=== PATIENT | male | born 1980 | race African-American/Black ===

== ENCOUNTER 2018-04-02 23:06 | Emergency (ER) | payer SELFPAY ==
--- NOTE | 2018-04-02 23:31 | RADIOLOGY REPORT (SQ) ---
EXAM DESCRIPTION: XR FOOT 1-2 VIEWS COMPLETED DATE/TME: 04/02/2018 00:00 CLINICAL HISTORY: 37 years, Male, Foot injury/laceration- possible foreign body COMPARISON: None. FINDINGS: 2 views of the left foot. No acute fracture or dislocation. Normal osseous mineralization. No radiopaque foreign body. IMPRESSION: No acute fracture or dislocation. 2011 [employer]- All Rights Reserved
[2018-04-03] MEDS ORDERED: OXYCODONE-ACETAMINOPHEN 5-325 MG TABLET PO ONE (01:01)
--- NOTE | 2018-04-03 01:07 | ER Document Report ---
ED Extremity Problem, Lower - General Mode of Arrival: Ambulatory Information source: Patient TRAVEL OUTSIDE OF THE [place] IN LAST 30 DAYS: No <CINDY POMPA - Last Filed: 04/03/18 01:00> <FAMILIA SUTTON - Last Filed: 04/03/18 06:22> - General Chief Complaint: Foot Injury Stated Complaint: LEFT FOOT INJURY Time Seen by Provider: 04/03/18 00:51 Notes: Patient is a 37 year old male presenting to the emergency department complaining of a laceration to the left foot and left foot pain. Patient states he fell over a wooden cradle which broke and proceeded to step on it around 2200 last night. Patient does not remember his last tetanus shot. (CINDY POMPA) - Related Data Allergies/Adverse Reactions: lactose [Lactose] Allergy (Verified 01/28/14 09:26) Past Medical History - General Information source: Patient - Social History Smoking Status: Current Every Day Smoker Chew tobacco use (# tins/day): No Frequency of alcohol use: Occasional Drug Abuse: Marijuana Family History: Reviewed & Not Pertinent Patient has suicidal ideation: No Patient has homicidal ideation: No - Immunizations Hx Diphtheria, Pertussis, Tetanus Vaccination: Yes <CINDY POMPA - Last Filed: 04/03/18 01:00> Review of Systems - Review of Systems Constitutional: No symptoms reported EENT: No symptoms reported Cardiovascular: No symptoms reported Respiratory: No symptoms reported Gastrointestinal: No symptoms reported Genitourinary: No symptoms reported Male Genitourinary: No symptoms reported Musculoskeletal: See HPI Skin: No symptoms reported Hematologic/Lymphatic: No symptoms reported Neurological/Psychological: No symptoms reported -: Yes All other systems reviewed and negative <CINDY POMPA - Last Filed: 04/03/18 01:00> Physical Exam <CINDY POMPA - Last Filed: 04/03/18 01:00> <FAMILIA SUTTON - Last Filed: 04/03/18 06:22> - Vital signs Vitals: Temp Pulse Resp BP Pulse Ox 98.9 F 72 16 135/82 H 98 04/02/18 23:39 04/02/18 23:39 04/02/18 23:39 04/02/18 23:39 04/02/18 23:39 - Notes Notes: GENERAL: Alert, interacts well. No acute distress. HEAD: Normocephalic, atraumatic. EYES: Pupils equal, round, and reactive to light. Extraocular movements intact. ENT: Oral mucosa moist, tongue midline. NECK: Full range of motion. Supple. Trachea midline. LUNGS: No respiratory distress. HEART: Regular rate and rhythm. No murmurs, gallops, or rubs. ABDOMEN: Soft, non-tender. Non-distended. Bowel sounds present in all 4 quadrants. EXTREMITIES: Moves all 4 extremities spontaneously. No edema, radial and dorsalis pedis pulses 2/4 bilaterally. No cyanosis. NEUROLOGICAL: Alert and oriented x3. Normal speech. PSYCH: Normal affect, normal mood. SKIN: Warm, dry, normal turgor. 1x1 cm evulsion type laceration on the plantar aspect of the left foot close to heel, tissue folds posteriorly and inverts into wound. (CINDY POMPA) Course <CINDY POMPA - Last Filed: 04/03/18 01:00> - Diagnostic Test Radiology reviewed: Image reviewed, Reports reviewed - X-rays are unremarkable, no foreign body seen no fracture seen. <FAMILIA SUTTON - Last Filed: 04/03/18 06:22> - Re-evaluation Re-evalutation: 04/03/18 01:58 Patient is unable to tolerate any sort of exam of the involved area. We will get a suture kit set up and anesthetized the involved port part of his foot. 04/03/18 06:20 PROCEDURE: The skin on the plantar surface of the left foot was prepped with Shur-Clens. The wound was anesthetized with 1% lidocaine infiltrated under the skin and into the subcutaneous tissues around the wound. After adequate anesthesia, the skin flap was elevated, the wound was copiously irrigated with 40 mL's of normal saline, and the entire extent of the wound under the intact skin was explored with a mosquito clamp to confirm there were no foreign bodies. The full-thickness skin flap was then placed back into anatomical position and bandaged. (FAMILIA SUTTON) - Vital Signs Vital signs: Temp Pulse Resp BP Pulse Ox 98.6 F 88 16 138/77 H 100 04/03/18 04:20 04/03/18 04:20 04/03/18 04:20 04/03/18 04:20 04/03/18 04:20 Discharge <CINDY POMPA - Last Filed: 04/03/18 01:00> <FAMILIA SUTTON - Last Filed: 04/03/18 06:22> - Discharge Clinical Impression: Avulsion of skin of foot Qualifiers: Encounter type: initial encounter Laterality: left Qualified Code(s): S91.302A - Unspecified open wound, left foot, initial encounter Condition: Stable Disposition: HOME, SELF-CARE Additional Instructions: A small piece of full-thickness skin was avulsed from the bottom of your foot. The area under the skin was explored and cleaned. The skin was placed back intact and should be left that way. Keep the dressing clean and dry. Elevate your foot as much as possible. Try to avoid walking on that area. Some of that skin flap will probably survive and some of it may eventually slough off. Follow-up with your doctor or [facility] in 3-5 days to recheck your wound. Forms: Return to Work Referrals: ALICE BARR NP [Primary Care Provider] - Follow up in 3-5 days [facility] [Provider Group] - Follow up in 3-5 days Scribe Attestation: 04/03/18 02:00 I personally performed the services described in the documentation, reviewed and edited the documentation which was dictated to the scribe in my presence, and it accurately records my words and actions. (FAMILIA SUTTON) Scribe Documentation - Scribe Written by Tao:: Tao Gonzalez, 04/03/2018 01:07 acting as scribe for :: Jimmy <CINDY POMPA - Last Filed: 04/03/18 01:00>
[2018-04-03] MEDS ORDERED: LIDOCAINE 1% INJ-PF (10 MG/ML) 30 ML SDV INJ ONE (01:57)
[2018-04-03 04:23] VITALS: BP 138/77
== END 2018-04-03 03:10 | disposition home or self-care (01) ==
LOC: ER 23:06
DX: S91.312A Laceration without foreign body, left foot, initial encounter (principal); W01.198A Fall on same level from slipping, tripping and stumbling with subsequent striking against other object, initial encounter; F17.200 Nicotine dependence, unspecified, uncomplicated; F12.10 Cannabis abuse, uncomplicated
CPT/HCPCS: 99283; 73620; J3490

== ENCOUNTER 2019-01-16 13:39 | Emergency (ER) | payer SELFPAY ==
[2019-01-16] MEDS ORDERED: ONDANSETRON HCL INJ/PF 4 MG/2 ML SDV IV ONE (14:57)
[2019-01-16] MEDS ORDERED: KETOROLAC TROMETHAMINE INJ/PF 30 MG/1 ML SDV IV ONE ×2 (14:57→21:57)
--- NOTE | 2019-01-16 14:58 | ER Document Report ---
ED Medical Screen (RME) - General Chief Complaint: Flank Pain Stated Complaint: SIDE PAIN Time Seen by Provider: 01/16/19 14:57 Primary Care Provider: ALICE BARR NP [Primary Care Provider] - Follow up as needed Mode of Arrival: Ambulatory Information source: Patient Notes: Patient presents complaining of left lateral side pain that started today with hematuria nausea and vomiting. Patient denies any concerns about STI. I have greeted and performed a rapid initial assessment of this patient. A comprehensive ED assessment and evaluation of the patient, analysis of test results and completion of the medical decision making process will be conducted by additional ED providers. TRAVEL OUTSIDE OF THE [place]. IN LAST 30 DAYS: No - Related Data Allergies/Adverse Reactions: lactose [Lactose] Allergy (Verified 01/16/19 13:54) Past Medical History Renal/ Medical History: Denies: Hx Peritoneal Dialysis - Immunizations Hx Diphtheria, Pertussis, Tetanus Vaccination: Yes Physical Exam - Vital signs Vitals: Temp Pulse Resp BP Pulse Ox 98.2 F 87 18 135/95 H 98 01/16/19 14:12 01/16/19 14:12 01/16/19 14:12 01/16/19 14:12 01/16/19 14:12 - General General appearance: Appears well, Alert Notes: Left lateral side tenderness Course - Vital Signs Vital signs: Temp Pulse Resp BP Pulse Ox 98.2 F 87 18 135/95 H 98 01/16/19 14:12 01/16/19 14:12 01/16/19 14:12 01/16/19 14:12 01/16/19 14:12 Doctor's Discharge - Discharge Referrals: ALICE BARR NP [Primary Care Provider] - Follow up as needed
--- NOTE | 2019-01-16 15:55 | RADIOLOGY REPORT (SQ) ---
EXAM DESCRIPTION: CT ABD/PELVIS NO ORAL OR IV COMPLETED DATE/TIME: 01/16/2019 3:35 pm REASON FOR STUDY: L lat side pain, +hematuria COMPARISON: 01/28/2014 TECHNIQUE: CT scan of the abdomen and pelvis performed without intravenous or oral contrast. Images reviewed with lung, soft tissue, and bone windows. Reconstructed coronal and sagittal MPR images revi ewed. All images stored on PACS. All CT scanners at this facility use dose modulation, iterative reconstruction, and/or weight based d osing when appropriate to reduce radiation dose to as low as reasonably achievable (ALARA). [facility]: Dose Right [facility]: CareDose [facility]: Dose Right [facility]: Teradose 4D [facility]: Smart Fangcang RADIATION DOSE: CT Rad equipment meets quality standard of care and radiation dose reduction techniq ues were employed. CTDIvol: 14.1 mGy. DLP: 823 mGy-cm.mGy. LIMITATIONS: None. FINDINGS: LOWER CHEST: No significant findings. No nodules or infiltrates. NON-CONTRASTED LIVER, SPLEEN, ADRENALS: Evaluation limited by lack of IV contrast. Diffuse fatty inf iltration of the liver. No identified significant masses. PANCREAS: No masses. No peripancreatic inflammatory changes. GALLBLADDER: No calcified stones. No inflammatory changes to suggest cholecystitis. RIGHT KIDNEY AND URETER: No cysts identified. No solid masses. No calcified stones. No hydronephrosis or hydroureter. LEFT KIDNEY AND URETER: No cysts identified. No solid masses. No calcified stones. No hydronephrosis or hydroureter. AORTA AND RETROPERITONEUM: No aneurysm. No retroperitoneal masses or adenopathy. BOWEL AND PERITONEAL CAVITY: No obvious masses or inflammatory changes. No free fluid. APPENDIX: Normal. PELVIS, BLADDER, AND ABDOMINAL WALL:No abnormal masses. No free fluid. Punctate calcification in the superior right bladder wall. BONES: No acute findings. OTHER: No other significant finding. IMPRESSION: No acute inflammatory changes. TECHNICAL DOCUMENTATION: JOB ID: [id number] [place]-72 Quality ID # [id number]: Final reports with documentation of one or more dose reduction techniques (e.g., Au tomated exposure control, adjustment of the mA and/or kV according to patient size, use of iterative reconstruction technique) 2010 [employer]- All Rights Reserved Reading location - IP/workstation name: [email or web address]
[2019-01-16 16:32] LABS: ABSOLUTE BASOPHILS # (AUTO) 0.1 10^3/uL (0.0-0.2); ABSOLUTE EOSINOPHILS # (AUTO) 0.2 10^3/uL (0.0-0.6); ABSOLUTE LYMPHOCYTES (AUTO) 1.8 10^3/uL (0.5-4.7); ABSOLUTE MONOCYTES (AUTO) 1.2 10^3/uL (0.1-1.4); ABSOLUTE NEUT (AUTO) 8.3 10^3/uL (1.7-8.2); BASOPHILS % (AUTO) 0.6 % (0-2); EOSINOPHILS % (AUTO) 1.4 % (0-6); LYMPHOCYTES % (AUTO) 15.8 % (13-45); MEAN CORPUSCULAR HEMOGLOBIN 36.3 pg (27.0-33.4); MEAN CORPUSCULAR HGB CONC 34.1 g/dL (32.0-36.0); MEAN CORPUSCULAR VOLUME 106 fl (80-97); MONOCYTES % (AUTO) 10.6 % (3-13); PLATELET COUNT 255 10^3/uL (150-450); RED BLOOD COUNT 5.56 10^6/uL (4.35-5.55); RED CELL DISTRIBUTION WIDTH 15.1 % (11.5-14.0); SEGMENTED NEUTROPHILS % (AUTO) 71.6 % (42-78); TOTAL CELLS COUNTED % (AUTO) 100 %; WHITE BLOOD COUNT 11.6 10^3/uL (4.0-10.5)
[2019-01-16 16:42] LABS: ALANINE AMINOTRANSFERASE 63 U/L (21-72); ALBUMIN 4.5 g/dL (3.5-5.0); ALKALINE PHOSPHATASE 163 U/L (38-126); ANION GAP 14 (5-19); ASPARTATE AMINO TRANSFERASE 89 U/L (17-59); BILIRUBIN,DIRECT 0.4 mg/dL (0.0-0.4); BILIRUBIN,TOTAL 1.4 mg/dL (0.2-1.3); BLOOD UREA NITROGEN 6 mg/dL (7-20); CALCIUM 10.1 mg/dL (8.4-10.2); CARBON DIOXIDE 31 mmol/L (22-30); CHLORIDE 97 mmol/L (98-107); GLUCOSE 77 mg/dL (75-110); POTASSIUM 3.7 mmol/L (3.6-5.0); SODIUM 141.7 mmol/L (137-145); TOTAL PROTEIN 8.4 g/dL (6.3-8.2)
[2019-01-16 16:44] LABS: HEMATOCRIT 59.1 % (37.9-51.0)
[2019-01-16 16:48] LABS: HEMOGLOBIN 20.2 g/dL (13.5-17.0)
[2019-01-16 16:56] LABS: APPEARANCE,URINE TURBID; BILIRUBIN,URINE NEGATIVE (NEGATIVE); CALCIUM OXALATE CRYSTALS,URINE FEW /HPF; COLOR,URINE YELLOW; GLUCOSE, URINE NEGATIVE (NEGATIVE); KETONES,URINE NEGATIVE (NEGATIVE); LEUKOCYTE ESTERASE,URINE LARGE (NEGATIVE); NITRITE,URINE NEGATIVE (NEGATIVE); PROTEIN,URINE 100 mg/dL (NEGATIVE); URINE SPECIFIC GRAVITY 1.015
[2019-01-16 18:17] LABS: CHLAM PCR NOT DETECTED (NOT DETECT)
[2019-01-16 18:22] LABS: GON PCR NOT DETECTED (NOT DETECT)
[2019-01-16] MEDS ORDERED: CEFTRIAXONE INJ 500 MG VIAL IV ONE (19:22)
[2019-01-16] MEDS ORDERED: AZITHROMYCIN 250 MG TABLET PO ONE (19:22)
[2019-01-16] MEDS ORDERED: DOXYCYCLINE HYCLATE 100 MG TABLET PO ONE (19:23)
[2019-01-16] MEDS ORDERED: NORMAL SALINE 1000 ML 1,000 ML IV ONE (20:17)
[2019-01-16] MEDS ORDERED: PHENAZOPYRIDINE HCL 200 MG TABLET PO ONE (20:29)
--- NOTE | 2019-01-16 21:11 | ER Document Report ---
ED General - General Chief Complaint: Flank Pain Stated Complaint: SIDE PAIN Time Seen by Provider: 01/16/19 14:57 Primary Care Provider: ALICE BARR NP [ALLIED HEALTH PROFESSIONAL] - Follow up as needed Mode of Arrival: Ambulatory TRAVEL OUTSIDE OF THE [place] IN LAST 30 DAYS: No - HPI Notes: Patient is a 38-year-old gentleman comes to the emergency department for evaluation of left lower quadrant pain, discharge from his penis, and burning with urination. He states that the abdominal pain started yesterday. It seemed to start after having sex with his . He states that he has had some nausea but no emesis. He said urinary frequency and urgency as well, noted some gross hematuria earlier today. Upon arrival to the emergency department, he did note some discharge from his penis. He states he is in a sexually monogamous relationship with his . Denies any other sores. He felt chilled yesterday but no tami fevers. - Related Data Allergies/Adverse Reactions: lactose [Lactose] Allergy (Verified 01/16/19 13:54) Past Medical History - General Information source: Patient - Social History Smoking Status: Current Every Day Smoker Chew tobacco use (# tins/day): No Frequency of alcohol use: Heavy Drug Abuse: None Family History: Reviewed & Not Pertinent Patient has suicidal ideation: No Patient has homicidal ideation: No - Past Medical History Cardiac Medical History: Reports: Hx Hypertension Renal/ Medical History: Denies: Hx Peritoneal Dialysis - Immunizations Hx Diphtheria, Pertussis, Tetanus Vaccination: Yes Review of Systems - Review of Systems Constitutional: See HPI EENT: No symptoms reported Cardiovascular: No symptoms reported Respiratory: No symptoms reported Gastrointestinal: See HPI Genitourinary: See HPI Male Genitourinary: See HPI Musculoskeletal: No symptoms reported Skin: No symptoms reported Neurological/Psychological: No symptoms reported Physical Exam - Vital signs Vitals: Temp Pulse Resp BP Pulse Ox 98.2 F 87 18 135/95 H 98 01/16/19 14:12 01/16/19 14:12 01/16/19 14:12 01/16/19 14:12 01/16/19 14:12 - Notes Notes: Vital signs reviewed, please refer to chart. Head is normocephalic, atraumatic. Pupils equal round, reactive to light. Neck is supple without meningismus. Heart is regular rate and rhythm. Lungs are clear to auscultation bilaterally. Abdomen is soft, nontender, normoactive bowel sounds throughout. Semination of the genitalia yields no obvious lesions. He does have a small amount of green purulent drainage noted at the urethral meatus. No penile tenderness. Bilateral testicles are descended without significant tenderness. Intact crem asteric reflex. Extremities without cyanosis, clubbing. Posterior calves are nontender. Peripheral pulses are equal. Skin is warm and dry. Patient is awake, alert, neurological exam is nonfocal. Course - Re-evaluation Re-evalutation: 01/16/19 21:05 Patient presents emergency department for evaluation. His findings are consist ent with urethritis. I did discuss findings at length with the patient and his . I do feel inclined to treat him for gonorrhea and chlamydia, and I explained that to him. Her urine did not reveal gonorrhea or chlamydia positivity. He was medicated here with Rocephin, Zithromax. I will then treat him with doxycycline for urethritis. Urine sent for culture. I expanded the patient that he needs urological follow-up. Certainly it is not normal for a patient of his aged to have a urinary tract infection. He voiced understanding to this. On further questioning he states he did have some dysuria and dark urine about a week ago. He believes it was just from dehydration. I told him that that certainly could have been the start of an infection and he needs to follow-up. He voiced understanding to this. I also notify the patient of his high hemoglobin. This is likely secondary to his smoking. He does not have any clubbing on exam. I explicitly told the patient that he needs to quit smoking. He understands this as well. He is to return to the emergency department with worsening or new concerning symptoms of any sort. 01/16/19 21:58 Notified by nursing that the patient is having diarrhea. I went in to reevaluate the patient. His abdomen remains soft. It is unclear at this time as to whether or not this patient's diarrhea is secondary to the antibiotic doses that he had here or from a viral illness that caused his nausea in the first place. I do not want to treat his diarrhea at this time. I did go ahead and give a second dose of Toradol, lower dose, as well as some oral Bentyl. He is given oral instructions on diet for diarrhea. He is to follow-up with pr ary care. - Vital Signs Vital signs: Temp Pulse Resp BP Pulse Ox 98.2 F 87 18 135/95 H 98 01/16/19 14:12 01/16/19 14:12 01/16/19 14:12 01/16/19 14:12 01/16/19 14:12 - Laboratory Result Diagrams: 01/16/19 15:55 01/16/19 15:55 Laboratory results interpreted by me: 01/16/19 01/16/19 01/16/19 15:50 15:55 15:55 WBC 11.6 H RBC 5.56 H Hgb 20.2 H* Hct 59.1 H MCV 106 H MCH 36.3 H RDW 15.1 H Absolute Neutrophils 8.3 H Chloride 97 L Carbon Dioxide 31 H BUN 6 L Total Bilirubin 1.4 H AST 89 H Alkaline Phosphatase 163 H Total Protein 8.4 H Urine Protein 100 H Urine Blood LARGE H Urine Urobilinogen 2.0 H Ur Leukocyte Esterase LARGE H Discharge - Discharge Clinical Impression: Urethritis, nonspecific, Polycythemia secondary to smoking Condition: Stable Disposition: HOME, SELF-CARE Instructions: Urethritis ([facility]), Urinary Tract Infection ([facility]) Additional Instructions: Your hemoglobin was over 20 today. You need to quit smoking. Follow-up with primary care as well as urology. Call the antibiotic as prescribed until it is gone. Return to the emergency department with worsening or new concerning symptoms of any sort. 01/16/19 16:51 [email or web address] [address] [place] [place] [email or web address] [address] [place] [email or web address] [address] [place] Prescriptions: Doxycycline Hyclate 100 mg PO BID #19 capsule Referrals: ALICE BARR NP [ALLIED HEALTH PROFESSIONAL] - Follow up as needed
[2019-01-16] MEDS ORDERED: DICYCLOMINE HCL 20 MG TABLET PO ONE (21:57)
[2019-01-16 22:18] VITALS: BP 124/74
== END 2019-01-16 22:19 | disposition home or self-care (01) ==
LOC: ER 13:39
DX: N34.2 Other urethritis (principal); D75.1 Secondary polycythemia; R10.32 Left lower quadrant pain; R19.7 Diarrhea, unspecified; F17.200 Nicotine dependence, unspecified, uncomplicated
CPT/HCPCS: 96376; 99284; 96361; 96375; 96365; 36415; 85025; 80053; 81001; 87491; 87591; 74176; J3490 ×2; J1885; J0696; J2405; J7030

== ENCOUNTER 2019-02-20 15:10 | Emergency (ER) | payer OTHER ==
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
[2019-02-20 16:50] VITALS: BP 133/84
== END 2019-02-20 16:30 | disposition home or self-care (01) ==
LOC: ER 15:10
DX: M54.2 Cervicalgia (principal); M79.602 Pain in left arm; M54.5 Low back pain; M54.89 Other dorsalgia; V43.52XA Car driver injured in collision with other type car in traffic accident, initial encounter; I10 Essential (primary) hypertension
CPT/HCPCS: 99283

== ENCOUNTER 2019-04-23 11:23 | Emergency (ER) | payer OTHER ==
[2019-04-23] MEDS ORDERED: KETOROLAC TROMETHAMINE 60 MG/2 ML SDV IM ONE (12:37)
[2019-04-23] MEDS ORDERED: DIAZEPAM 5 MG TABLET PO ONE (12:37)
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
[2019-04-23] MEDS ORDERED: MORPHINE SULFATE 10 MG/ML INJ IV ONE ×2 (14:43→16:27)
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
[2019-04-23] MEDS ORDERED: HYDROCODONE/ACETAMINOPHEN 5-325 MG (6 TAB/ER DISP) PO PRN (16:27)
[2019-04-23 16:54] VITALS: BP 134/97
== END 2019-04-23 16:53 | disposition home or self-care (01) ==
LOC: ER 11:23
DX: M54.5 Low back pain (principal); M25.521 Pain in right elbow; M25.511 Pain in right shoulder; R20.0 Anesthesia of skin; G89.29 Other chronic pain; F17.200 Nicotine dependence, unspecified, uncomplicated; I10 Essential (primary) hypertension
CPT/HCPCS: 73080; 72110; 73030; J1885; J2270

== ENCOUNTER 2019-06-15 05:48 | Emergency (ER) | payer OTHER ==
[2019-06-15] MEDS ORDERED: IBUPROFEN 800 MG TABLET PO ONE (06:37)
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
--- NOTE | 2019-06-15 07:33 | RADIOLOGY REPORT (SQ) ---
EXAM: X-ray shoulder two or more views CLINICAL DATA: 39-year-old male with right shoulder pain TECHNICAL DATA: Three x-ray views of the right shoulder were performed on 06/15/2019 at 7:02 AM. COMPARISONS: 04/23/2019 FINDINGS: There is no evidence of fracture or dislocation. There is no significant arthritis or degenerative change. No focal lytic or sclerotic bone lesions are seen. Bone mineralization is normal. No focal soft tissue abnormalities are identified. IMPRESSION: No evidence of acute osseous injury involving the right shoulder. No significant change when compared to the prior study.
[2019-06-15] MEDS ORDERED: KETOROLAC TROMETHAMINE 60 MG/2 ML SDV IM ONE (07:49)
[2019-06-15 08:08] VITALS: BP 148/95
== END 2019-06-15 08:08 | disposition home or self-care (01) ==
LOC: ER 05:48
DX: M25.511 Pain in right shoulder (principal); G89.29 Other chronic pain; M54.2 Cervicalgia; R20.0 Anesthesia of skin; F17.210 Nicotine dependence, cigarettes, uncomplicated; I10 Essential (primary) hypertension
CPT/HCPCS: 73030; J1885; 96372; 99283

== ENCOUNTER 2019-10-20 07:30 | Emergency (ER) | payer OTHER ==
[2019-10-20] MEDS ORDERED: IPRATROPIUM/ALBUTEROL 0.5-2.5 MG/3 ML AMPUL NEB ONE (08:50)
[2019-10-20] MEDS ORDERED: PREDNISONE 20 MG TABLET PO ONE (08:50)
[2019-10-20 09:31] LABS: ABSOLUTE EOSINOPHILS # (AUTO) 0.1 10^3/uL (0.0-0.6); ABSOLUTE LYMPHOCYTES (AUTO) 1.3 10^3/uL (0.5-4.7); ABSOLUTE MONOCYTES (AUTO) 0.9 10^3/uL (0.1-1.4); ABSOLUTE NEUT (AUTO) 5.8 10^3/uL (1.7-8.2); BASOPHILS % (AUTO) 0.4 % (0-2); EOSINOPHILS % (AUTO) 1.2 % (0-6); HEMATOCRIT 51.9 % (37.9-51.0); HEMOGLOBIN 17.9 g/dL (13.5-17.0); MEAN CORPUSCULAR HEMOGLOBIN 35.2 pg (27.0-33.4); MEAN CORPUSCULAR HGB CONC 34.5 g/dL (32.0-36.0); MEAN CORPUSCULAR VOLUME 102 fl (80-97); MONOCYTES % (AUTO) 10.8 % (3-13); PLATELET COUNT 233 10^3/uL (150-450); RED BLOOD COUNT 5.09 10^6/uL (4.35-5.55); RED CELL DISTRIBUTION WIDTH 14.5 % (11.5-14.0); SEGMENTED NEUTROPHILS % (AUTO) 71.6 % (42-78); TOTAL CELLS COUNTED % (AUTO) 100 %; WHITE BLOOD COUNT 8.1 10^3/uL (4.0-10.5)
[2019-10-20 09:42] LABS: A TYPE INFLUENZA AG NEGATIVE (NEGATIVE)
[2019-10-20 09:43] LABS: B INFLUENZA AG NEGATIVE (NEGATIVE)
--- NOTE | 2019-10-20 09:47 | ER Document Report ---
Entered by DUC KEARNEY SCRIBE 10/20/19 0838 Acting as scribe for:FAMILIA SUTTON MD ED General - General Chief Complaint: Back Pain Stated Complaint: BACK PAIN Time Seen by Provider: 10/20/19 08:33 Mode of Arrival: Ambulatory Information source: Patient Notes: This 39 year old male patient presents to the ED today with complaints of lower back pain with radiation to his left leg that started x1 day ago. Patient states that his his left leg began to go numb last night in addition to tingling on the top of his left foot and swelling in his left knee. Patient denies history of gout, injury, or trauma. Patient also reports subjective fevers on and off, wheezing at night, sore throat, productive cough, nose congestion/discharge, clammy skin, and nausea for the past x5 days. Patient notes that he brings up green sputum when he coughs and that his nasal drainage is also green. Patient states that he has taken DayQuil, NightQuil, pseudophedrine, and a hottie tottie with mild relief. TRAVEL OUTSIDE OF THE [place] IN LAST 30 DAYS: No - Related Data Allergies/Adverse Reactions: lactose [Lactose] Allergy (Verified 10/20/19 08:10) Past Medical History - General Information source: Patient, [facility] - Social History Smoking Status: Current Every Day Smoker Cigarette use (# per day): Yes - 1 ppd Chew tobacco use (# tins/day): No Smoking Education Provided: No Frequency of alcohol use: Occasional Drug Abuse: Marijuana Occupation: [employer] Family History: Reviewed & Not Pertinent Patient has suicidal ideation: No Patient has homicidal ideation: No - Past Medical History Cardiac Medical History: Reports: Hx Hypertension Past Surgical History: Reports: Hx Orthopedic Surgery - L knee - Immunizations Hx Diphtheria, Pertussis, Tetanus Vaccination: Yes Review of Systems - Review of Systems Constitutional: See HPI, Fever EENT: See HPI, Nose congestion, Nose discharge, Throat pain Cardiovascular: No symptoms reported Respiratory: See HPI, Cough, Sputum, Wheezing Gastrointestinal: See HPI, Nausea Genitourinary: No symptoms reported Male Genitourinary: No symptoms reported Musculoskeletal: See HPI, Back pain, Other - Leg pain. Leg numbness. Foot tingling. Knee swelling. Skin: See HPI, Other - Clammy skin Hematologic/Lymphatic: No symptoms reported Neurological/Psychological: No symptoms reported -: Yes All other systems reviewed and negative Physical Exam - Vital signs Vitals: Temp Pulse Resp BP Pulse Ox 98.4 F 88 18 129/88 H 96 10/20/19 07:46 10/20/19 07:46 10/20/19 07:46 10/20/19 07:46 10/20/19 07:46 - General General appearance: Alert - HEENT Head: Normocephalic, Atraumatic Eyes: Normal Pupils: PERRL Sinus: Other - Congestion Nasal: Clear rhinorrhea - Respiratory Respiratory status: No respiratory distress Chest status: Nontender Breath sounds: Rhonchi, Wheezing Chest palpation: Normal - Cardiovascular Rhythm: Regular Heart sounds: Normal auscultation Murmur: No - Abdominal Inspection: Normal Distension: No distension Bowel sounds: Normal Tenderness: Nontender - Abdomen soft. Organomegaly: No organomegaly - Back Back: Tender - Lumbar back musculature tenderness with palpation. - Extremities General upper extremity: Normal inspection General lower extremity: Other - RLE is normal. Effusion and tenderness with palpation in knee of LLE. Patient reports pain with palpation down the left anterior leg.. No: Edema - In LLE - Neurological Neuro grossly intact: Yes - Psychological Associated symptoms: Normal affect, Normal mood - Skin Skin Temperature: Warm Skin Moisture: Dry Skin Color: Normal Course - Vital Signs Vital signs: Temp Pulse Resp BP Pulse Ox 98.4 F 88 18 129/88 H 96 10/20/19 07:46 10/20/19 07:46 10/20/19 07:46 10/20/19 07:46 10/20/19 07:46 - Laboratory Result Diagrams: 10/20/19 09:00 10/20/19 09:00 Laboratory results interpreted by me: 10/20/19 10/20/19 09:00 09:00 Hgb 17.9 H Hct 51.9 H MCV 102 H MCH 35.2 H RDW 14.5 H Uric Acid 9.0 H Total Bilirubin 1.5 H Alkaline Phosphatase 146 H Creatine Kinase 357 H C-Reactive Protein 25.9 H Discharge - Discharge Clinical Impression: Viral upper respiratory tract infection with cough, Flu-like symptoms Gout attack Qualifiers: Gout site: knee Gout etiology: unspecified cause Laterality: left Qualified Code(s): M10.9 - Gout, unspecified Low back pain Qualifiers: Chronicity: acute Back pain laterality: left Sciatica presence: without sciatica Qualified Code(s): M54.5 - Low back pain Condition: Stable Disposition: HOME, SELF-CARE Additional Instructions: Upper Respiratory Illness: You have a viral infection of the respiratory passages -- a "cold." This common infection causes nasal congestion, drainage, and often sore throat and cough. It is caused by a virus and is highly contagious. The disease usually lasts a week or more, though the worst symptoms are usually over in 3 or 4 days. There is no "cure" for the viral infection -- it must run its course. If there is a complication, such as bacterial infection in the nose, sinuses, middle ear, or bronchial tubes, antibiotics may be required, but antibiotics won't affect the virus. If you smoke, you should STOP!! Drink plenty of fluids. A humidifier may help. An expectorant medication or decongestant may make you more comfortable. Use acetaminophen or ibuprofen for fever or aches. See the doctor if fever persists over two or three days, if there is any significant worsening of your symptoms, or if you simply fail to improve as exp ected. Gout: You have been diagnosed as having gout. Gout is a problem caused by an excess of uric acid, a natural chemical found in the body. The cause of this disease is unknown. Gout arthritis occurs when crystals of uric acid form in the joints. The big toe is the most common joint involved, but any joint can become affected. Persons with gout may also form uric acid kidney stones, resulting in flank pain and blood in the urine. Nodules of uric acid may form under the skin. The first step of treatment is to decrease the inflammation in the joint with antiinflammatory medication. Medication to lower the uric acid level in the blood may then be prescribed. This medication should be taken regularly, as any sudden change in dosage may provoke an attack of gout. Some foods, such as red meat, can provoke an attack in some gout sufferers. Call the doctor if new symptoms arise, or if you do not improve. Gout Diet: Changing your diet can decrease the uric acid in your blood. High levels of uric acid cause gouty arthritis and uric acid kidney stones. If you have gout, you should avoid meats that are high in purine. Meat products to avoid include liver, kidneys, and brains. In general, poultry is better than red meats. Seafoods to avoid include anchovies, sardines, kent, mackerel, and scallops. In addition to limiting purine-rich foods, people with gout should limit protein intake to 10-15% of total calories. Carbohydrate intake should be around 50% of total daily calories. Limit fat intake to 30% of total daily calories. Cholesterol intake should be less than 300 mg/day. Maintain or achieve a healthy body weight. Weight loss should be gradual. Rapid weight loss can actually increase uric acid levels temporarily. Alcohol, especially beer, should be avoided. Get plenty of fluids. This dilutes urinary uric acid, and helps prevent uric acid kidney stones. Drink eight to twelve cups of water daily. Start the prednisone tomorrow. Take the pain medication as needed. Take ibuprofen 600 mg every 6 hours. Drink plenty of fluids. Limit walking and try to stay off of the involved knee. Continue [id number] cough and cold medications as needed. Follow-up with a local medical doctor to help manage your gout and elevated uric acid levels. RETURN TO THE EMERGENCY ROOM IF ANY NEW OR WORSENING SYMPTOMS. Prescriptions: Prednisone [Deltasone 10 mg Tablet] 10 mg PO ASDIR PRN #21 tablet PRN Reason: Oxycodone HCl/Acetaminophen [Percocet 5-325 mg Tablet] 1 tab PO ASDIR PRN #12 tablet PRN Reason: Scribe Attestation: 10/20/19 10:32 I personally performed the services described in the documentation, reviewed and edited the documentation which was dictated to the scribe in my presence, and it accurately records my words and actions. I personally performed the services described in the documentation, reviewed and edited the documentation which was dictated to the scribe in my presence, and it accurately records my words and actions.
[2019-10-20 09:53] LABS: ALKALINE PHOSPHATASE 146 U/L (38-126); ANION GAP 12 (5-19); ASPARTATE AMINO TRANSFERASE 46 U/L (17-59); BILIRUBIN,DIRECT 0.2 mg/dL (0.0-0.4); BILIRUBIN,TOTAL 1.5 mg/dL (0.2-1.3); BLOOD UREA NITROGEN 10 mg/dL (7-20); C-REACTIVE PROTEIN 25.9 mg/L (<10.0); CALCIUM 9.4 mg/dL (8.4-10.2); CARBON DIOXIDE 24 mmol/L (22-30); CHLORIDE 103 mmol/L (98-107); CREATINE KINASE 357 U/L (55-170); GLUCOSE 78 mg/dL (75-110); TOTAL PROTEIN 7.4 g/dL (6.3-8.2)
[2019-10-20 10:07] LABS: ERYTHROCYTE SEDIMENTATION RATE 4 mm/hr (0-15)
[2019-10-20] MEDS ORDERED: COLCHICINE 0.6 MG TABLET PO ONE (10:19)
[2019-10-20] MEDS ORDERED: OXYCODONE-ACETAMINOPHEN 5-325 MG TABLET PO ONE (10:19)
[2019-10-20] MEDS ORDERED: ALBUTEROL SULFATE HFA (90 MCG/PUFF) 8 GM MDI (1 MDI/ER DISP) IH ONE (10:45)
[2019-10-20 11:13] VITALS: BP 138/86
== END 2019-10-20 11:09 | disposition home or self-care (01) ==
LOC: ER 07:30
DX: M54.5 Low back pain (principal); M10.9 Gout, unspecified; J06.9 Acute upper respiratory infection, unspecified; B97.89 Other viral agents as the cause of diseases classified elsewhere; R05 Cough; M25.462 Effusion, left knee; M79.605 Pain in left leg; R20.0 Anesthesia of skin; R20.2 Paresthesia of skin; R06.2 Wheezing; R09.81 Nasal congestion; J34.89 Other specified disorders of nose and nasal sinuses; J02.9 Acute pharyngitis, unspecified; R11.0 Nausea; F17.210 Nicotine dependence, cigarettes, uncomplicated; F12.10 Cannabis abuse, uncomplicated; I10 Essential (primary) hypertension; Z91.018 Allergy to other foods
CPT/HCPCS: 36415; 82550; 84550; 85025; 85652; 86140; 80053; 87804; J7512; J3490; J7620